=== PATIENT | male | born 1965 | race Caucasian/White ===

== ENCOUNTER 2024-05-30 16:17 | Inpatient (IN) | payer BC ==
[2024-05-30] MEDS ORDERED: Acetaminophen 650 MG Suppository PR PRN (22:14)
[2024-05-30] MEDS: Acetaminophen 325 MG TAB PO PRN (22:29)
[2024-05-31 03:16] LABS: #Basophils 0.03 10x3/uL (0.0-0.2); %Basophils 0.4 % (0.0-1.0); %Eosinophils 5.8 % (0.0-10.0); %Lymphocytes 16.2 % (21.0-51.0); %Monocytes 11.3 % (0.0-10.0); %Neutrophils 65.9 % (42.0-75.0); Hematocrit 35.5 % (42.0-52.0); Hemoglobin 12.5 g/dL (14.0-18.0); Mean Corpuscular HGB CONC 35.2 g/dL (32.0-36.0); Mean Corpuscular Hemoglobin 32.2 pg (27.0-31.0); Mean Corpuscular Volume 91.5 fL (78.0-98.0); Mean Platelet Volume 10.7 fL (7.4-10.4); Platelet Count 247 10x3/uL (130-400); RBC Distribution Width 13.2 % (11.5-14.5); Red Blood Cell (RBC) Count 3.88 mill/uL (4.70-6.10)
[2024-05-31 03:27] LABS: Chloride 94 mmol/L (98-107); Potassium 5.1 mmol/L (3.5-5.1); Sodium 131 mmol/L (136-145)
[2024-05-31 03:28] LABS: Calcium 9.3 mg/dL (7.8-10.44); Glucose 140 mg/dL (70-105)
[2024-05-31 03:30] LABS: Anion Gap 29 mmol/L (10-20); Carbon Dioxide 13 mmol/L (22-29)
[2024-05-31 03:32] LABS: BUN (Urea Nitrogen) 123 mg/dL (8.4-25.7); Calc. Creatinine Clearance 6 mL/min (70-130); Estimated GFR 3
[2024-05-31] MEDS: Sodium Chloride 0.9% 1,000 ML IV SCH (05:19)
[2024-05-31] MEDS: Sodium Bicarb 50 mEq/50 ML VIAL IVP SCH (05:25)
[2024-05-31 05:52] LABS: Anion Gap 26 mmol/L (10-20); BUN (Urea Nitrogen) 122 mg/dL (8.4-25.7); Calc. Creatinine Clearance 6 mL/min (70-130); Calcium 9.1 mg/dL (7.8-10.44); Carbon Dioxide 15 mmol/L (22-29); Chloride 95 mmol/L (98-107); Estimated GFR 3; Glucose 135 mg/dL (70-105); Potassium 5.1 mmol/L (3.5-5.1); Sodium 131 mmol/L (136-145)
[2024-05-31] MEDS: Morphine 4 MG/ML VIAL SLOW IVP SCH (06:16)
[2024-05-31] MEDS: Ondansetron ODT 4 MG TAB PO PRN (06:29)
[2024-05-31] MEDS: Famotidine 20 MG TAB PO SCH (08:56)
[2024-05-31] MEDS: Famotidine/PF 20 mg/2ml Vial SLOW IVP SCH (08:57)
[2024-05-31] MEDS: Diphenoxylate HCl/Atropine Tablet PO SCH (10:40)
[2024-05-31] MEDS: Sodium Bicarbonate 150 MEQ in Dextrose 5% in Water 1,000 ML IV SCH ×2 (10:40→23:59)
[2024-05-31 10:55] LABS: Anion Gap 23 mmol/L (10-20); BUN (Urea Nitrogen) 115 mg/dL (8.4-25.7); Calc. Creatinine Clearance 7 mL/min (70-130); Calcium 9.2 mg/dL (7.8-10.44); Carbon Dioxide 16 mmol/L (22-29); Chloride 99 mmol/L (98-107); Estimated GFR 4; Glucose 122 mg/dL (70-105); Potassium 5.2 mmol/L (3.5-5.1); Sodium 133 mmol/L (136-145)
[2024-05-31 11:27] LABS: Protein, Urine Random Quant 18 mg/dL (1-14); Sodium, Urine 53 mmol/L (Not Available)
[2024-05-31 13:56] VITALS: BMI 23.9
[2024-05-31] MEDS: HYDROcodone/Acetaminophen 7.5/325 mg Tablet PO PRN (17:43)
[2024-05-31 19:15] LABS: Anion Gap 21 mmol/L (10-20); BUN (Urea Nitrogen) 109 mg/dL (8.4-25.7); Calc. Creatinine Clearance 9 mL/min (70-130); Calcium 9.2 mg/dL (7.8-10.44); Carbon Dioxide 18 mmol/L (22-29); Chloride 99 mmol/L (98-107); Estimated GFR 5; Glucose 112 mg/dL (70-105); Potassium 5.1 mmol/L (3.5-5.1); Sodium 133 mmol/L (136-145)
[2024-05-31] MEDS: Amlodipine 10 MG TAB PO SCH (21:26)
[2024-05-31] MEDS: Sertraline 25 MG TAB PO SCH (21:26)
[2024-05-31] MEDS: Allopurinol 300 MG TAB PO SCH (21:27)
[2024-06-01 04:40] VITALS: BMI 24.0
[2024-06-01 06:33] LABS: Anion Gap 18 mmol/L (10-20); BUN (Urea Nitrogen) 97 mg/dL (8.4-25.7); Calc. Creatinine Clearance 12 mL/min (70-130); Carbon Dioxide 23 mmol/L (22-29); Chloride 99 mmol/L (98-107); Estimated GFR 7; Glucose 144 mg/dL (70-105); Potassium 4.4 mmol/L (3.5-5.1); Sodium 136 mmol/L (136-145)
[2024-06-01] MEDS: Sodium Chloride 0.9% 1,000 ML IV SCH (10:19)
[2024-06-01] MEDS: Famotidine 20 MG TAB PO SCH (20:47)
[2024-06-01] MEDS: Famotidine/PF 20 mg/2ml Vial SLOW IVP SCH (20:55)
[2024-06-01] MEDS: Morphine 2 MG/ML VIAL SLOW IVP SCH (23:41)
[2024-06-02] MEDS: Ondansetron PF 4 MG/2 ML Vial IVP PRN (01:19)
[2024-06-02] MEDS: Morphine 2 MG/ML VIAL SLOW IVP SCH (04:02)
[2024-06-02] MEDS: Loperamide HCl 2 MG CAP PO PRN (04:03)
[2024-06-02 09:41] LABS: Anion Gap 16 mmol/L (10-20); BUN (Urea Nitrogen) 66 mg/dL (8.4-25.7); Calc. Creatinine Clearance 32 mL/min (70-130); Calcium 9.7 mg/dL (7.8-10.44); Carbon Dioxide 25 mmol/L (22-29); Chloride 102 mmol/L (98-107); Estimated GFR 22; Glucose 108 mg/dL (70-105); Magnesium 1.9 mg/dL (1.6-2.6); Sodium 138 mmol/L (136-145)
[2024-06-02] MEDS: Morphine 2 MG/ML VIAL SLOW IVP PRN (20:44)
[2024-06-03 06:40] LABS: Anion Gap 17 mmol/L (10-20); BUN (Urea Nitrogen) 40 mg/dL (8.4-25.7); Calc. Creatinine Clearance 52 mL/min (70-130); Calcium 10.5 mg/dL (7.8-10.44); Carbon Dioxide 21 mmol/L (22-29); Chloride 101 mmol/L (98-107); Estimated GFR 40; Glucose 114 mg/dL (70-105); Potassium 5.4 mmol/L (3.5-5.1); Sodium 134 mmol/L (136-145)
[2024-06-03 09:40] LABS: Anion Gap 16 mmol/L (10-20); BUN (Urea Nitrogen) 36 mg/dL (8.4-25.7); Calc. Creatinine Clearance 57 mL/min (70-130); Calcium 10.1 mg/dL (7.8-10.44); Carbon Dioxide 23 mmol/L (22-29); Chloride 102 mmol/L (98-107); Estimated GFR 45; Glucose 132 mg/dL (70-105); Potassium 4.8 mmol/L (3.5-5.1); Sodium 136 mmol/L (136-145)
[2024-06-03 11:59] VITALS: BP 106/53; TEMP 98.4
== END 2024-06-03 14:10 | disposition home or self-care (01) | DRG 683 ==
LOC: 2NO 21:23 → INTOOBSV 21:23 → OBSVTOIN 06-02 15:23
PROVIDERS: ADMIT Internal Medicine; ATTEND Internal Medicine
DX: N17.9 Acute kidney failure, unspecified (principal); C20 Malignant neoplasm of rectum; E87.20 Acidosis, unspecified; Z66 Do not resuscitate; I10 Essential (primary) hypertension; M10.9 Gout, unspecified; F17.210 Nicotine dependence, cigarettes, uncomplicated; Z88.0 Allergy status to penicillin; Z79.899 Other long term (current) drug therapy; Z90.49 Acquired absence of other specified parts of digestive tract; Z98.890 Other specified postprocedural states
CPT/HCPCS: 36415; 76770; 80048; 83735; 84156; 84300; 85025; 96374; 96375; 96376; G0378; J2272; J2405; J7030; J7070; Q0162

== ENCOUNTER 2024-06-20 10:30 | Inpatient (IN) | payer BC ==
[2024-06-23 14:53] VITALS: BMI 25.4
[2024-06-24] MEDS ORDERED: Midazolam HCl 2 mg/2 ml Vial ONE (13:57)
[2024-06-24] MEDS ORDERED: fentaNYL 50 mcg/mL 1 mL Vial ONE (13:57)
[2024-06-24] MEDS ORDERED: EPINEPHrine 1 MG/ML VIAL ONE (13:57)
[2024-06-24] MEDS ORDERED: Bupivacaine 0.25% HCL 30 ML VIAL ONE (13:58)
[2024-06-24] MEDS ORDERED: Lidocaine 1% (PF) 30 ML VIAL ONE (13:58)
[2024-06-24] MEDS ORDERED: Sodium Chloride 0.9% 100 ML ONE (15:57)
[2024-06-24] MEDS ORDERED: cefOXitin 2 GM VIAL ONE (15:57)
== END 2024-06-24 16:51 | disposition home or self-care (01) | DRG 395 ==
LOC: SURG A 06-24 11:43
PROVIDERS: ADMIT Surgery; ATTEND Surgery
PROC: 3E030XZ Introduction of Vasopressor into Peripheral Vein, Open Approach (ICD-10-PCS; principal; 2024-06-24)
DX: Z43.2 Encounter for attention to ileostomy (principal); Z88.0 Allergy status to penicillin; Z53.9 Procedure and treatment not carried out, unspecified reason
CPT/HCPCS: 36416; 74280; 80048; 83036; 85025; 93005; 93010; J0171; J0665; J0694; J2250; J3010; Q9963

== ENCOUNTER 2024-06-23 14:41 | Outpatient (CLI) | payer BC ==
[2024-06-23] MEDS ORDERED: MD-Gastroview 120 ML BOT ONE ×2 (14:54→15:01)
== END 2024-06-23 14:42 | disposition home or self-care (01) ==
LOC: RAD 14:41
PROVIDERS: ATTEND Surgery
DX: C20 Malignant neoplasm of rectum (principal); K63.89 Other specified diseases of intestine
CPT/HCPCS: 74280; 80048; 83036; 85025; Q9963

== ENCOUNTER 2024-10-23 13:52 | Outpatient (CLI) | payer BC | END 2024-10-23 13:53 | disposition home or self-care (01) | LOC: SCSRAD 13:52 | PROVIDERS: ATTEND Surgery | DX: R10.33 Periumbilical pain (principal) | CPT/HCPCS: 74019 ==